=== PATIENT | male | born 1960 | race Caucasian/White ===

== ENCOUNTER 2019-02-10 08:47 | Outpatient (CLI) | payer OTHER | END 2019-02-10 08:48 | disposition home or self-care (01) | LOC: CTENTCT 08:47 | PROVIDERS: ATTEND Otolaryngology Plastic Surgery within the Head & Neck | DX: H57.9 Unspecified disorder of eye and adnexa (principal) | CPT/HCPCS: 70486 ==

== ENCOUNTER 2019-02-19 13:10 | Day surgery (SDC) | payer OTHER ==
[2019-02-19] MEDS ORDERED: Oxymetazoline HCl 0.05% ( 15 ML ) ONE (13:48)
[2019-02-19] MEDS ORDERED: Midazolam HCl 2 mg/2 ml Vial ONE ×2 (14:13→14:28)
[2019-02-19] MEDS ORDERED: Lidocaine 2% w/Epinephrine 1:200K 20 ML VIAL ONE (14:24)
[2019-02-19] MEDS ORDERED: Oxymetazoline HCl 0.05% (30 ML BOT) ONE (14:24)
[2019-02-19] MEDS ORDERED: Fentanyl 100 MCG/2 ML VIAL ONE ×2 (14:28→15:27)
[2019-02-19] MEDS ORDERED: Meperidine HCl/PF 25 MG/ML VIAL ONE (15:45)
[2019-02-19] MEDS ORDERED: HYDROcodone/Acetaminophen 5/325 mg Tablet ONE (17:55)
--- NOTE | 2019-02-20 08:39 | OP ---
DATE OF PROCEDURE: 02/19/2019 PREOPERATIVE DIAGNOSES: 1. Chronic rhinosinusitis. 2. Nasal septal deviation. 3. Bilateral inferior turbinate hypertrophy. 4. Nasal obstruction. POSTOPERATIVE DIAGNOSES: 1. Chronic rhinosinusitis. 2. Nasal septal deviation. 3. Bilateral inferior turbinate hypertrophy. 4. Nasal obstruction. PROCEDURES PERFORMED: 1. Bilateral endoscopic sinus surgery, total ethmoidectomies. 2. Bilateral endoscopic sinus surgery, maxillary antrostomies. 3. Bilateral endoscopic sinus surgery, frontal sinusotomies. 4. Nasal septoplasty. 5. Bilateral inferior turbinate submucosal resection. ESTIMATED BLOOD LOSS: 50 mL. COMPLICATIONS: None. ANESTHESIA: GETA. PROCEDURE IN DETAIL: The patient was taken to the operating room and placed supine on the table. General endotracheal anesthesia was obtained by the anesthesia staff. Tube was secured in the left lower lip. Patient was then placed in the beach chair position, and Afrin pledgets were placed in the nasal cavity. Injections of 1% lidocaine with 1:100,000 epinephrine were made into the nasal septum as well as the inferior turbinates. Patient was then prepped and draped in standard surgical fashion for nasal surgery. Following this, the Afrin pledgets were removed. A Driss incision was made on the left nasal septum. Submucoperichondrial dissection was performed. The deviated portions of the septum included portions of the cartilage and the bony septum. These isolated areas were removed using 3 cutting rongeurs. There was noted to be a large dorsal and caudal strut, left intact for support of the nose. The mucoperichondrial flaps were then reapproximated using a 4-0 gut stitch. Any straight pieces of cartilage were crushed prior to this and placed between the mucoperichondrial flaps. Following this, the inferior turbinates were then punctured with a submucosal coblation wand, and submucosal coblations were performed of multiple areas of the inferior portion of the anterior inferior turbinate. Please note that the submucosal microdebrider was used to submucosally resect the anterior and inferior portions of the inferior turbinates bilaterally. Following this, the 0-degree endoscope was advanced in the middle meatus. The middle turbinate was gently medialized with a [place] elevator. Following this, the uncinate process was identified bilaterally and was anteriorly fractured using a ball-ended probe. Following this, the 0-degree microdebrider was used to remove the uncinate process bilaterally. Following this, the ball-ended probe was used to identify the natural maxillary sinus ostia bilaterally and it was gently widened with the curved microdebrider and straight [place]akes[place] forceps bilaterally. Following this, the ethmoidal bulla was identified and was punctured on its medial and inferior aspect with a 0-degree microdebrider. The microdebrider and the up-biting Blakesley forceps were used to remove the ethmoidal bulla and open the anterior ethmoidal cells. Following this, the grand lamella was identified bilaterally and was punctured into the posterior ethmoidal cells using the 0-degree microdebrider, identifying the skull base, the ethmoidal sinuses were opened from a [id number] direction. Following this, a 45-degree scope and the curved microdebrider blade were used to further open the frontal recess cells and identify and open the frontal sinus ostia bilaterally. Following this, the nasal cavity was irrigated. Mirapex was placed within the middle meatus. Ruffin splints were placed and secured. The patient tolerated the procedure well. Job ID: [id number]
== END 2019-02-19 18:15 | disposition home or self-care (01) ==
LOC: SDC 13:10
PROVIDERS: ATTEND Otolaryngology Plastic Surgery within the Head & Neck
PROC: 09TV8ZZ Resection of Left Ethmoid Sinus, Via Natural or Artificial Opening Endoscopic (ICD-10-PCS; principal; 2019-02-19)
PROC: 09TL4ZZ Resection of Nasal Turbinate, Percutaneous Endoscopic Approach (ICD-10-PCS; principal; 2019-02-19)
PROC: 099R8ZZ Drainage of Left Maxillary Sinus, Via Natural or Artificial Opening Endoscopic (ICD-10-PCS; principal; 2019-02-19)
PROC: 099T8ZZ Drainage of Left Frontal Sinus, Via Natural or Artificial Opening Endoscopic (ICD-10-PCS; principal; 2019-02-19)
PROC: 09SM0ZZ Reposition Nasal Septum, Open Approach (ICD-10-PCS; principal; 2019-02-19)
PROC: 09TU8ZZ Resection of Right Ethmoid Sinus, Via Natural or Artificial Opening Endoscopic (ICD-10-PCS; principal; 2019-02-19)
PROC: 099Q8ZZ Drainage of Right Maxillary Sinus, Via Natural or Artificial Opening Endoscopic (ICD-10-PCS; principal; 2019-02-19)
PROC: 099S8ZZ Drainage of Right Frontal Sinus, Via Natural or Artificial Opening Endoscopic (ICD-10-PCS; principal; 2019-02-19)
DX: J32.4 Chronic pansinusitis (principal); J34.2 Deviated nasal septum; J34.3 Hypertrophy of nasal turbinates; J34.89 Other specified disorders of nose and nasal sinuses; K21.9 Gastro-esophageal reflux disease without esophagitis; J30.2 Other seasonal allergic rhinitis; Z79.899 Other long term (current) drug therapy
CPT/HCPCS: 93005; 93010; J2175; J2250; J3010

== ENCOUNTER 2020-09-07 12:26 | Outpatient (CLI) | payer OTHER ==
--- NOTE | 2020-09-07 14:27 | MRI ---
LEFT KNEE MRI WITHOUT IV CONTRAST: HISTORY: Left knee pain, medial meniscal tear. FINDINGS: Multiplanar, multisequence MRI examination of the left knee is performed. There is a small amount of suprapatellar joint fluid. There is also a small amount of fluid within the gastrocnemius semimembr anosus recess. There is some mild to moderate generalized tricompartment cartilage loss. Complex me dial meniscal tear extending from the posterior horn near the posterior root into the mid body with a horizontal component as well as a flap component at the posterior root anteriorly and also at the le ruth of the body. Minimal intrasubstance increased signal and slight free edge blunting of the latera l meniscus, evidence for some degenerative change and fraying. Anterior and posterior cruciate ligam ents and collateral ligament complexes appear intact. Quadriceps and patellar tendons appear intact. No acute osteochondral defect or significant abnormal acute edema. IMPRESSION: Complex tear medial meniscus from near the posterior root to the mid body with flap components. Mild tricompartment cartilage loss. Mild intrasubstance degenerative signal and minimal free edge fraying of the lateral meniscus. No evidence for other significant acute internal derangement. POS: RRE
== END 2020-09-07 12:27 | disposition home or self-care (01) ==
LOC: BICMRI 12:26
PROVIDERS: ATTEND Orthopaedic Surgery
DX: S83.232A Complex tear of medial meniscus, current injury, left knee, initial encounter (principal); M23.301 Other meniscus derangements, unspecified lateral meniscus, left knee

== ENCOUNTER 2020-10-01 07:39 | Outpatient (CLI) | payer OTHER ==
[2020-10-01 15:17] LABS: #Basophils 0.1 10x3/uL (0.0-0.2); #Eosinphils 0.1 10x3/uL (0.0-0.5); #Monocytes 0.5 10x3/uL (0.0-1.1); #Neutrophils 3.9 10x3/uL (1.5-8.4); %Basophils 0.8 % (0.0-2.0); %Eosinophils 1.7 % (0.0-6.0); %Lymphocytes 29.3 % (18.0-47.0); %Monocytes 7.9 % (0.0-10.0); Hemoglobin 14.8 g/dL (14.0-18.0); Mean Corpuscular HGB CONC 35.1 G/DL (32.0-36.0); Mean Corpuscular Volume 88.5 fl (80.0-100.0); Mean Platelet Volume 10.7 fl (7.4-10.4); Platelet Count 189 10x3/uL (130-400); Red Blood Cell (RBC) Count 4.77 10x6/uL (4.40-5.80); White Blood Cell (WBC) Count 6.5 10x3/uL (4.5-11.0)
[2020-10-01 16:10] LABS: Anion Gap 16 mmol/L (10-20); BUN (Urea Nitrogen) 14 mg/dL (8.4-25.7); Calc. Creatinine Clearance 0 mL/min (70-130); Calcium 9.3 mg/dL (7.8-10.44); Carbon Dioxide 26 mmol/L (22-29); Chloride 105 mmol/L (98-107); Estimated GFR-MDRD 75; Glucose 90 mg/dL (70-105); Potassium 4.7 mmol/L (3.5-5.1); Sodium 142 mmol/L (136-145)
[2020-10-03 15:26] LABS: SARS-CoV-2 MS2 Positive; SARS-CoV-2 N Gene Negative; SARS-CoV-2 S Gene Negative; SARS-CoV-2 by NAA Not Detected (NotDetected); SARS-CoV-2 orf1ab Negative
== END 2020-10-01 07:40 | disposition home or self-care (01) ==
LOC: LABBT 07:39
PROVIDERS: ATTEND Orthopaedic Surgery
DX: Z01.818 Encounter for other preprocedural examination (principal); S83.207A Unspecified tear of unspecified meniscus, current injury, left knee, initial encounter; Z20.828 Contact with and (suspected) exposure to other viral communicable diseases
CPT/HCPCS: 80048; 85025; 87635; 93005; 93010; U0003

== ENCOUNTER 2020-10-06 08:00 | Day surgery (SDC) | payer OTHER ==
[2020-10-05 10:17] VITALS: BMI 27.8
[2020-10-06] MEDS ORDERED: PROPOFOL 20 ML ONE (08:38)
[2020-10-06] MEDS ORDERED: Fentanyl 100 MCG/2 ML VIAL ONE (09:09)
[2020-10-06] MEDS ORDERED: PROPOFOL 200 MG/20 ML VIAL ONE (09:46)
[2020-10-06] MEDS ORDERED: Ondansetron PF 4 MG/2 ML Vial ONE (09:46)
[2020-10-06] MEDS ORDERED: Ketorolac Tromethamine 30 MG/ML VIAL ONE (09:46)
[2020-10-06] MEDS ORDERED: Lidocaine 2% w/Epinephrine 1:200K 20 ML VIAL ONE (09:46)
[2020-10-06] MEDS ORDERED: Dexamethasone 20 MG/5 ML VIAL ONE (09:46)
[2020-10-06] MEDS ORDERED: Bupivacaine PF 0.5% 30 ML VIAL ONE (09:46)
[2020-10-06] MEDS ORDERED: ePHEDrine 50 MG/ML VIAL ONE (09:46)
[2020-10-06] MEDS ORDERED: Lidocaine 1% PF 5 ML VIAL ONE (09:46)
--- NOTE | 2020-10-06 17:44 | OP ---
DATE OF PROCEDURE: 10/06/2020 PREOPERATIVE DIAGNOSIS: Left knee complex tear of posterior horn of medial meniscus. POSTOPERATIVE DIAGNOSIS: Left knee complex tear of posterior horn of medial meniscus. PROCEDURES PERFORMED: 1. Left knee arthroscopy. 2. Partial medial meniscectomy. DOLL W[employer] ROOTED HAIR: None. BLOOD LOSS: Minimal. COMPLICATIONS: None. ANESTHESIA: The patient did have a general anesthetic, also had a local knee block. DISPOSITION: He went to recovery room in stable condition. INDICATIONS: Mr. Bryant is a very active male, comes in complaining of pain, catching, and swelling in the knee. MRI scan showed a complex tear of the posterior horn of medial meniscus with a large flap component. At this time, he opted to have surgery. DESCRIPTION OF PROCEDURE: After all appropriate consent forms were explained and signed, he was taken to the operating room and at this time was given general anesthetic. Once the level of anesthesia was appropriate, a tourniquet was placed on the left thigh. Leg was placed in arthroscopic leg workman. The limb was then prepped and draped in standard surgical fashion. Limb was exsanguinated and the tourniquet was taken up to 300 mmHg. Inferolateral portal was established. Scope was placed into the knee joint. A needle localization technique was then used to make a medial working portal. Diagnostic arthroscopy commenced in the notch. The ACL and PCL were probed and found to be intact. The medial compartment was evaluated. The femoral condyle was found to be in good condition overall as well as the medial tibial plateau. There was a complex degenerative tear of the posterior horn of medial meniscus with multiple planes of tearing including a large flap component. Partial meniscectomy was performed using meniscal biter and shaver down to a stable base. The lateral compartment was then evaluated and the lateral femur, tibia, and lateral meniscus were probed and found to be intact. Patellofemoral joint was also found to be in active condition. The gutters were swept through. No loose bodies were noted. At this time, scope was removed and knee was drained. Each portal was closed with simple nylon stitch and a bulky sterile dressing was applied. The patient was then awakened. He was taken to recovery room in stable condition. All counts were correct at the end of the case and he did receive preoperative IV antibiotics. Job ID: [id number]
== END 2020-10-06 11:45 | disposition home or self-care (01) ==
LOC: SDC 08:00
PROVIDERS: ATTEND Orthopaedic Surgery
PROC: 0SBD4ZZ Excision of Left Knee Joint, Percutaneous Endoscopic Approach (ICD-10-PCS; principal; 2020-10-06)
DX: S83.232A Complex tear of medial meniscus, current injury, left knee, initial encounter (principal); J30.2 Other seasonal allergic rhinitis; Z79.899 Other long term (current) drug therapy; Z87.891 Personal history of nicotine dependence
CPT/HCPCS: J1100; J1885; J2405; J2704; J3010; J3490; S0020